=== PATIENT | female | born 1955 ===

== ENCOUNTER 2021-04-13 17:52 | Emergency (ER) | payer MEDICARE ==
[~2021-04-13] VITALS: Ht 172.7 cm; Wt 55.0 kg
[2021-04-13 17:57] VITALS: BP 159/82
== END 2021-04-14 01:12 | disposition left against medical advice (07) ==
LOC: ER 17:54
DX: G43.909 Migraine, unspecified, not intractable, without status migrainosus (principal); Z53.21 Procedure and treatment not carried out due to patient leaving prior to being seen by health care provider